=== PATIENT | female | born 1990 | race Caucasian/White ===

== ENCOUNTER 2017-05-26 01:49 | Emergency (ER) | payer OTHER ==
[~2017-05-26] VITALS: Ht 157.5 cm; Wt 59.0 kg
[2017-05-26] MEDS ORDERED: ORTHTAB15 PO (02:22)
[2017-05-26 04:25] LABS: MICROSCOPIC INDICATED? MAN NO (NO)
[2017-05-26 06:37] LABS: BASO % 0.3 % (0.0-1.0); CONTROL LINE HCG INT CTR LINE PRESENT; EOS % 0.4 % (0.0-3.0); LARGE UNSTAINED CELL # 0.1 K/mm3 (0.0-0.4); LARGE UNSTAINED CELL % 0.6 % (0.0-4.0); LYMPH # 0.9 K/mm3 (1.5-6.5); LYMPH % 7.7 % (24.0-44.0); MEAN CORPUSCULAR HEMOGLOBIN 29.3 pg (27.0-33.0); MEAN CORPUSCULAR HGB CONC 31.4 g/dl (32.0-36.5); MEAN CORPUSCULAR VOLUME 93.2 fl (80.0-96.0); MONO # 0.4 K/mm3 (0.0-0.8); MONO % 3.4 % (0.0-5.0); NEUTROPHILS # 9.2 K/mm3 (1.8-7.7); NEUTROPHILS % 87.5 % (36.0-66.0); PLATELET COUNT, AUTOMATED 291 k/mm3 (150-450); RED CELL DISTRIBUTION WIDTH 13.1 % (11.5-14.5); WHITE BLOOD COUNT 10.6 K/mm3 (4.0-10.0)
[2017-05-26 06:40] LABS: AMYLASE 76 U/L (25-115); ANION GAP 7 MEQ/L (8-16); BLOOD UREA NITROGEN 13 MG/DL (7-18); CALCIUM LEVEL 8.3 MG/DL (8.5-10.1); CARBON DIOXIDE LEVEL 27 MEQ/L (21-32); CHLORIDE LEVEL 107 MEQ/L (98-107); CREATININE FOR GFR 0.95 MG/DL (0.55-1.02); GLOMERULAR FILTRATION RATE > 60.0 (>60); GLUCOSE, FASTING 97 MG/DL (70-105); SODIUM LEVEL 141 MEQ/L (136-145)
[2017-05-26] MEDS ORDERED: GASTROGRAFIN SOLUTION 30ML (Q9963) PO ONE ×2 (06:45)
[2017-05-26] MEDS ORDERED: ISOVUE-370 76% 100ML VIAL (Q9967) As Ordered ONE (08:03)
--- NOTE | 2017-05-26 08:37 | REP ---
CT of the abdomen and pelvis without IV or bowel contrast: Comparison is 01/30/2017. The visualized lung farr are unremarkable. The unenhanced hepatic parenchyma, gallbladder, pancreas and spleen are normal size, homogeneous and unremarkable. The adrenals, kidneys and abdominal aorta are unremarkable. There is no bowel distension or obstruction. Pelvis: The appendix is not identified, however there is no pericecal inflammation or abscess. The uterus is tilted to the right but otherwise unremarkable. The adnexa are unremarkable. The previous right adnexal cyst has resolved. There is a small volume of free fluid in the dependent pelvis. Impression: Small volume of ascites in the dependent pelvis. The previous right adnexal cyst has involuted . There are no new adnexal cysts. The appendix is not identified, however there is no pericecal inflammation or abscess. Otherwise, negative CT of the abdomen and pelvis. Signed by Dev Bonilla MD 05/26/2017 08:27 A
[2017-05-26] MEDS ORDERED: NAPR500T3 PO (10:01)
[2017-05-26 10:22] VITALS: BP 128/60
== END 2017-05-26 10:23 | disposition home or self-care (01) ==
LOC: M ED 01:49
DX: N83.8 Other noninflammatory disorders of ovary, fallopian tube and broad ligament (principal)
CPT/HCPCS: 36415; 74176; 80048; 81002; 82150; 83690; 84703; 85025; 87086; 99284; Q9963